=== PATIENT | female | born 1975 | race Caucasian/White ===

== ENCOUNTER → 2016-07-29 | Outpatient (CLI) | payer BC ==
[~2016-07-29] MED LIST: ALBU0.63 AEROSOL; ALPR0.5T PO; CETI10CA19 PO; CHOL200047 PO; EPIN0.3P3; ESTR8.1S; FAMO1TAB17; FLUT1DIS ORAL INH; FLUT9.9S; KETO10DR13 BOTH EYES; METF500T4 PO; SALINE FLUSH 10ml SYRINGE ONE; SINCALIDE 5 MCG/VIAL IJ ONE; SODIUM CHLORIDE (Bacteriostatic) 30ml VIAL ONE; TOPI100T9 PO; TRAM50TA53 PO
--- NOTE | 2016-07-29 07:56 | DI ---
Indication: ITS.REASON: R10.11 RUQ PAIN PROCEDURE: US GALLBLADDER: Encounter: Initial Comparison: None Technique: Grayscale and color Doppler sonographic imaging of the right upper quadrant of the abdomen was performed. Findings: Hepatic parenchyma is homogeneous without evidence for focal mass. The gallbladder appears sonographically normal. There is no wall thickening, pericholecystic fluid, or cholelithiasis. Sonographic Bhakta's sign was reportedly positive. Both the intra and extrahepatic biliary system are of normal caliber with the common duct measuring 3 mm in dimension. Pancreas is not well seen due to shadowing bowel gas. The right kidney is present without collecting system dilatation. The right kidney measures 9.1 cm in length. Impression: Isolated positive sonographic Bhakta's sign is indeterminate. There is no cholelithiasis or other sonographic findings to suggest acute cholecystitis. Nuclear medicine hepatobiliary scan may be helpful for further evaluation. .
--- NOTE | 2016-07-29 17:01 | DI ---
Indication: ITS.REASON: R10.11 RUQ PAIN nausea and vomiting, worse after eating PROCEDURE: NM HEPATOBIL/EF: Encounter: Initial Comparison: Gallbladder ultrasound from today Technique: 6.4 mCi of Tc-99m mebrofenin was injected intravenously. At approximately 61 minutes following this administration, 1.5 mcg of Kinevac was administered intravenously. Anterior planar images were obtained and a time/activity curve was calculated. FINDINGS: Radiotracer uptake is seen homogenously within the liver. There is normal clearance of radiotracer from the blood pool. The common bile duct is visualized at approximately 9 minutes. The gallbladder is visualized by 10 minutes, and radiotracer is excreted into the small bowel. There is no evidence of radiotracer outside the biliary or gastrointestinal tract. The gallbladder ejection fraction is normal at 54%. IMPRESSION: 1. Gallbladder visualization excluding acute cholecystitis. 2. Normal gallbladder ejection fraction of 54%, excluding biliary dyskinesia. .
== END ==
LOC: IMA 06:29
DX: R10.11 Right upper quadrant pain (principal); R11.2 Nausea with vomiting, unspecified

== ENCOUNTER → 2016-07-30 | Outpatient (CLI) | payer BC ==
[~2016-07-30] MED LIST changes: +IOHEXOL 300 MG/ML 75ml INJECTION ONE; +NORMAL SALINE 100 ML ONE; -SINCALIDE 5 MCG/VIAL IJ ONE; -SODIUM CHLORIDE (Bacteriostatic) 30ml VIAL ONE
[2016-07-30 12:28] LABS: BASOPHILS % (AUTO) 0.4 % (0-2); EOSINOPHILS # (AUTO) 0.1 T/MM3 (0-0.5); EOSINOPHILS % (AUTO) 1.7 % (0-4); HCT - HEMATOCRIT 47.4 % (36-46); LYMPHOCYTES # (AUTO) 1.6 T/MM3 (1-4.8); LYMPHOCYTES % (AUTO) 30.3 % (23-45); MEAN CORPUSCULAR HGB 30.4 UUG (26-34); MEAN CORPUSCULAR HGB CONC(MCHC 33.8 GM/DL (31-37); MEAN CORPUSCULAR VOLUME 89.9 UM3 (80-100); MEAN PLATELET VOLUME 9.9 UM3 (9.4-12.4); MONOCYTES # (AUTO) 0.4 T/MM3 (0-0.8); MONOCYTES % (AUTO) 7.5 % (0-9.0); NEUTROPHILS #(AUTO)-ABSOLUTE 3.1 T/MM3 (1.8-7.7); NEUTROPHILS % (AUTO) 60.1 % (33-66); RED BLOOD COUNT 5.27 M/MM3 (4.00-5.20); WBC - WHITE BLOOD COUNT 5.2 T/MM3 (4.5-11.0)
[2016-07-30 12:40] LABS: ALBUMIN 4.4 G/DL (3.5-5.0); ALBUMIN/GLOBULIN RATIO 1.3 RATIO (1.1-2.2); ALKALINE PHOSPHATASE 73 U/L (38-126); ALT (SGPT) 52 U/L (9-52); ANION GAP 16 MEQ/L (5-15); AST (SGOT) 33 U/L (14-36); BUN/CREATININE RATIO 10 RATIO (6-26); CALCIUM 9.3 MG/DL (8.4-10.2); CHLORIDE 105 MEQ/L (98-107); CO2 - CARBON DIOXIDE 25 MEQ/L (22-30); CREATININE 1.4 MG/DL (0.7-1.2); GLOMERULAR FILTRATION RATE 42; GLUCOSE 116 MG/DL (65-110); LIPASE 142 U/L (23-300); POTASSIUM 3.7 MEQ/L (3.6-5); SODIUM 146 MEQ/L (134-144); TOTAL PROTEIN 7.9 G/DL (6.3-8.2)
[2016-07-30 13:10] LABS: THYROID STIM HORMONE-TSH 2.12 MIU/L (0.47-4.68)
--- NOTE | 2016-07-30 14:04 | DI ---
Indication: ITS.REASON: R10.9 RUQ ABD PAIN; R11.0 NAUSEA PROCEDURE: CT ABD/PELVIS W/CONTRAST ONLY: Encounter: Initial Comparison: CT abdomen and pelvis dated January 16, 2009 and gallbladder ultrasound from July 29, 2016 Technique: Axial CT images were performed through the abdomen and pelvis after the administration of intravenous contrast. Coronal and sagittal two-dimensional reformats. Automated Exposure Control and Iterative Reconstruction dose reducing techniques were utilized. Contrast: Omnipaque 300 74 mL Findings: The lung bases are clear. The liver is normal. The gallbladder, spleen, pancreas, adrenal glands and kidneys are normal. No abdominal or pelvic lymphadenopathy. The bladder is normal. Uterus and ovaries are surgically absent. No free fluid. No evidence of a bowel obstruction. The small and large bowel appear normal. Ventriculoperitoneal shunt catheter loops in the anterior abdomen. There is no fluid collection or inflammation seen along the course of this catheter. Two abandoned ventriculoperitoneal catheters are seen in the subcutaneous tissues of the right lower chest and abdomen. There is no inflammation or fluid along either of these catheters. There is no subcutaneous inflammation along the course of the functioning left-sided [employer] shunt catheter tubing. Bone windows are within normal limits. The appendix is not seen but there is no inflammation in its expected location. Impression: Normal exam. No acute disease process seen in the abdomen or pelvis. .
== END ==
LOC: IMA 11:47
PROVIDERS: ATTEND Nurse Practitioner
DX: R10.11 Right upper quadrant pain (principal); R11.0 Nausea
CPT/HCPCS: 36415; 80053; 82150; 83690; 84443; 85025

== ENCOUNTER 2016-08-06 08:37 | Day surgery (SDC) | payer BC ==
[~2016-08-06] VITALS: Ht 152.4 cm; Wt 77.9 kg
[~2016-08-06 08:37] MED LIST changes: -IOHEXOL 300 MG/ML 75ml INJECTION ONE; +LIDOCAINE 1% (10mg/ml) 5ml VIAL INJ ONE; +LR 1,000 ML IV SCH; -NORMAL SALINE 100 ML ONE; -SALINE FLUSH 10ml SYRINGE ONE
--- OUTSIDE RECORDS SUMMARY | 2016-08-06 08:42 | XMS REPORT ---
Author Author Alex Vick [facility] eClinicalWorks Address Unknown Phone Unavailable Care Team Providers Care Stippler Name Role Phone Alex Vick CP Unavailable Allergies, Adverse Reactions, Alerts Substance Reaction Event Type Latex Gloves rash Drug Allergy Tuberculin PPD hives Drug Allergy Rocephin nausea Drug Allergy Ketek diarrhea Drug Allergy Darvocet-N 100 nausea Drug Allergy Celebrex flushing Drug Allergy Cefaclor rash Drug Allergy Adhesive Tape rash Drug Allergy Nuts anaphylaxis Non Drug Allergy Steri-Strip rash Drug Allergy Surgical alicia rash Non Drug Allergy Relafen nausea Non Drug Allergy Problems Problem Type Condition Code Onset Dates Condition Status Assessment Vaginal itching L29.8 Active Assessment Nipple discharge N64.52 Active Problem Hormone replacement therapy (postmenopausal) Z79.890 Active Problem Atrophic vaginitis N95.2 Active Problem Other specified menopausal and perimenopausal disorders N95.8 Active Assessment Hormone replacement therapy (postmenopausal) Z79.890 Active Assessment Atrophic vaginitis N95.2 Active Assessment Encounter for gynecological examination with abnormal finding Z01.411 Active Assessment Other specified menopausal and perimenopausal disorders N95.8 Active Medications Medication Code System Code Instructions Start Date End Date Status Dosage ZyrTEC Itchy Eye [facility] [address]-20 0.025 % Ophthalmic Twice a day 1 drop into affected eye Ultram [facility] [address]-87 50 mg Orally TID 1 tablet Evamist [facility] [address]-08 1.53 MG/SPRAY Transdermal Once a day 2 sprays to the skin Vitamin B Complex [facility] [address] Orally Once a day 1 tablet Metformin HCl [facility] [address]-44 500 MG Orally Twice a day 1 tablet with meals Topamax [facility] [address]-33 100 MG Orally Twice a day 1 tablet Flonase [facility] [address]-32 50 MCG/ACT Nasally Once a day 1 spray in each nostril One Daily Womens [facility] [address] Orally Once a day 1 tablet Estradiol Vaginal NTE Cream-Cust Rx NDC 0 0.01% insert vaginally Once a night Feb 01, 2014 pea size amount Zoloft [facility] [address]-58 50 MG Orally Once a day 1 tablet Proventil HFA [facility] [address]-22 108 (90 Base) MCG/ACT Inhalation every 4 hrs 2 puffs as needed Zyrtec Allergy [facility] [address]-48 10 MG Orally Once a day 1 tablet Xanax [facility] [address]-34 0.5 MG Orally as needed 1/2-1 tablet as needed Vitamin D3 [facility] [address]-46 5000 UNIT Orally Once a day 1 capsule Procedures Procedure Coding System Code Date SMEAR, WET MOUNT, SALINE/INK CPT-4 68008 Feb 08, 2015 Preventive Care Est Pt. Age 18-39 CPT-4 29308 Feb 08, 2015 Vital Signs Date/Time: Feb 08, 2015 BMI 34.37 Index Weight 176 lbs Height 5 ft 0 in in Blood Pressure Diastolic 70 mm Hg Blood Pressure Systolic 110 mm Hg Results Name Result Date Reference Range Unit Abnormality Flag Wet Prep Summary Purpose eClinicalWorks Submission
[2016-08-06 09:18] VITALS: Ht 152.4 cm; Wt 77.9 kg
[2016-08-06 09:19] VITALS: BP 118/82; PULSE 77; RESP 14; TEMP 98.4; O2SAT 99
--- NOTE | 2016-08-06 10:40 | ANESPREOP ---
Anesthesia Record Date and Time DATE: 08/06/16 TIME: 10:38 Pre-Op Diagnosis ABD pain Proposed Surgical Procedure EGD NPO since: Midnight Allergies: Coded Allergies: Latex, Natural Rubber (Verified Allergy, Unknown, 08/06/16) acetaminophen (Verified Allergy, Unknown, 08/06/16) cefaclor (Verified Allergy, Unknown, 08/06/16) ceftriaxone (Verified Allergy, Unknown, 08/06/16) celecoxib (Verified Allergy, Unknown, 08/06/16) feathers (Verified Allergy, Unknown, 08/06/16) nabumetone (Verified Allergy, Unknown, 08/06/16) propoxyphene (Verified Allergy, Unknown, 08/06/16) telithromycin (Verified Allergy, Unknown, 08/06/16) Uncoded Allergies: TAPE (Allergy, Unknown, 08/05/16) TB SERUM (Allergy, Unknown, 08/05/16) Ht/Wt/BMI Height: 5 ' 0.00 " Weight: 77.900 kg BMI: 33.5 kg/m2 Vital Signs Date Time Temp Pulse Resp B/P Pulse Ox O2 Delivery O2 Flow Rate FiO2 08/06/16 09:19 98.4 77 14 118/82 99 Room Air Medications Inpatient Medications Current Medications Medications (Trade) Dose Ordered Sig/Tani Start Time Stop Time Status Last Admin Dose Admin Lactated Ringer's (Lactated Ringers) 1,000 ml @ 100 mls/hr Q10H 08/05/16 18:03 08/06/16 09:33 100 MLS/HR Albuterol Sulfate (Albuterol Sulfate) 0.63 Mg/3 Ml Vial.neb, 1 VIAL AEROSOL QID PRN for AIR HUNGER, (Reported) Last Taken: on 08/03/16 1400 Alprazolam (Xanax) 0.5 Mg Tablet, 0.5-1 TAB PO BID PRN for ANXIETY, (Reported) Last Taken: on 08/06/16 0530 Cetirizine HCl (Zyrtec) 10 Mg Capsule, 1 CAP PO HS, (Reported) Last Taken: on 08/06/16 0530 Cholecalciferol (Vitamin D3) (Vitamin D3) 2, 000 Unit Capsule, 1 CAP PO DAILY, (Reported) Last Taken: on 08/05/16 0900 Epinephrine (Epipen 2-Giles) 0.3 Mg/0.3 Ml Auto.injct, 0.3 ML for ALLERGIC REACTION, (Reported) Last Taken: on Unknown Date & Time Estradiol (Evamist) 8.1 Ml [place], 2 SPRAY BID, (Reported) Last Taken: on 08/06/16 0530 Famotidine/Ca Carb/Mag Hydrox (Pepcid Complete Tablet Chew) 1 Each Tab.chew, 1-2 TAB DAILY PRN for ACID REFLUX, (Reported) Last Taken: on Unknown Date & Time Fluticasone Propionate (Flonase Allergy Relief 50 mcg/actuation Nasal) 9.9 Ml [place].susp, 2 SPRAY DAILY, (Reported) Last Taken: on 08/06/16 0530 Fluticasone/Salmeterol (Advair 100-50 Diskus) 1 Disk W/Dev Inhaler, 1 PUFF ORAL INH RTBID, (Reported) Last Taken: on 08/06/16 0530 Ketotifen Fumarate (Allergy Eye Drops) 10 Ml Drops, 1 DROP BOTH EYES BID PRN for ALLERY SYMPTOMS, (Reported) Last Taken: on 07/30/16 0800 Metformin HCl (Metformin HCl) 500 Mg Tablet, 500 MG PO BIDWM, (Reported) Take one tablet, by mouth, 2 times a day with Meals. Last Taken: on Unknown Date & Time Topiramate (Topamax) 100 Mg Tablet, 100 MG PO BID, (Reported) Take 1 tablet, by mouth, 2 times a day. Last Taken: on 07/30/16 0800 Tramadol HCl (Ultram) 50 Mg Tablet, 25-50 MG PO TID PRN for PAIN, (Reported) Last Taken: on 08/05/161999 Currently on Beta Avelino: No Medical/Surgical History Anesthesia PMH: Reports: Anxiety, Asthma, Headaches, Obesity, Reflux, Denies: * Diabetes, *Dyspnea, Anesthesia Reactions, Blood Transfusion Reac, COPD, CVA/ Stroke/TIA, Cancer, Clotting Problems, Glaucoma, Malignant Hyperthermia, Pneumonia, Renal Disease, Seizures, Sleep Apnea, Thyroid Disease, Tuberculosis Smoking Status: Never smoker Has pt. smoked today?: No Use Chewing Tobacco?: No Second Hand Exposure: No Substance Use Type: does not use Alcohol Intake: none Past Surgical History Orthopedic Surgeries: No Abdominal Surgeries: Yes - exporatory laparoscopy 2008, lysis of adhesions 2008 , appy Genitourinary Surgeries: No Cardiac Surgeries: No Endocrine Surgeries: No Reproductive Surgeries: Yes - HYST 2010, moses breast reduction 1996 Neurological Surgeries: Yes - PV shunt revisions Ear Surgeries: No Nose Surgeries: No Throat Surgeries: No Other Surgeries: Yes - dermoid removal 1982, wisdom teeth 2001 Anesthesia Adverse Reactions: FOUND none Family Hx of Anesthesia Advers: none Pertinent Findings EKG Rhythm: Sinus Rhythm Physical Exam Respiratory: Lungs clear Cardiovascular: FOUND Regular rate, rhythm Airway Assessment Mallampati Score: II TMD: 3 Fingerbreadths Neck Extension: Good Overall Assessment: No Airway Concerns ASA: 3 Plan Anesthesia Plan: TIVA Discussion Discussed risks/options/alternatives of anesthesia and questions answered. Patient consents. Nursing pain assessment noted. Present: Family Member Attestation Statement Prior to the delivery of any anesthetic medication, I examined the patient, developed the plan, obtained the patient's consent and discussed the risk and benefits of the procedure with the patient/guardian. ROSANGELA ROCK DESIGN MAKER Aug 06, 2016 10:40
[2016-08-06] MEDS ORDERED: LIDOCAINE VISCOUS 2% Oral Soln 15ml UD ONE (11:39)
[2016-08-06 12:05] VITALS: BP 102/64; PULSE 66; RESP 20; TEMP 98.5; O2SAT 93
[2016-08-06 12:20] VITALS: BP 101/58; PULSE 67; RESP 19; O2SAT 98
[2016-08-06 12:35] VITALS: BP 108/57; PULSE 66; RESP 20; O2SAT 100
--- NOTE | 2016-08-06 12:43 | ANESPO ---
Post-Op Note Date 08/06/16 Time: 12:42 Status Pt Participated in Evaluation: Pt participated in person Vital Signs Date Time Temp Pulse Resp B/P Pulse Ox O2 Delivery O2 Flow Rate FiO2 08/06/16 12:20 67 19 101/58 98 Room Air 08/06/16 12:05 98.5 Respiratory Function: Airway patent, Regular respirations Cardiovascular Function: Regular pulse Mental Status: Alert/oriented Pain Level Intensity: 0 Hydration: Taking po fluids, IV infusing Complications during Recovery None apparent Post-Anesthesia Notes pt. ana. well Follow-Up Instructions Instructions Per Surgeon Additional Information none CARLOS RUDOLPH CRNA Aug 06, 2016 12:43
[2016-08-06 12:50] VITALS: BP 120/77; PULSE 62; RESP 18; O2SAT 100
--- NOTE | 2016-08-06 23:04 | OPNOTEF ---
DATE OF SERVICE 08/06/2016. SURGEON Duy Chaudhry MD PREOPERATIVE DIAGNOSIS Personal history for right upper quadrant abdominal pain, history for nausea and vomiting. POSTOPERATIVE DIAGNOSIS Mild antritis, irregularity of squamocolumnar junction. PROCEDURE Esophagogastroduodenoscopy with circumferential biopsies from distal esophagus via cold biopsy technique, biopsies from antrum for permanent pathology and KORTNEY assay via cold biopsy technique. ANESTHESIA TIVA BRIEF HISTORY/INDICATIONS Ms. Chambers is a 41-year-old female who recently presented to my office as a result of her history for ongoing right upper quadrant abdominal pain, nausea and vomiting of uncertain etiology. Patient has undergone a quite thorough evaluation including prior gallbladder ultrasound, hepatobiliary scan that did not reveal any evidence for underlying biliary etiology for her abdominal pain. To further evaluate the etiology for her abdominal pain it was recommended that she undergo upper endoscopy/esophagogastroduodenoscopy. For completeness please refer to notes included in the patient's chart. FINDINGS Upon upper endoscopy no marked abnormalities were noted to explain her right upper quadrant abdominal pain, nausea, vomiting. There was no evidence for davide ulcerations or marked gastritis. The mucosa within the antral portion was mildly to moderately erythematous, however. Therefore, a few biopsies were obtained from the antrum for permanent pathology as well as for KORTNEY assay. Endoscopically, there was no evidence for hiatal hernia. She was found to have some slight irregularity of the squamocolumnar junction. Endoscopically, however, there was no evidence for marked distal esophagitis. NARRATIVE OF PROCEDURE After informed consent was obtained the patient was brought to the endoscopy suite and placed upon the table in left lateral decubitus position. The patient subsequently underwent total intravenous anesthesia by the nurse overedge sewer at my request. Formal time-out was then completed. Next, an Olympus gastroscope was inserted into the oral hypopharynx and subsequently into the esophagus under direct visualization. Gastroscope was advanced through the esophagus, stomach, pylorus, duodenal bulb, second portion of the duodenum. Scope was then slowly withdrawn. First and second portions of the duodenum were within normal limits. No evidence of duodenitis or ulcerations was noted. Scope was drawn back to the prepyloric region and antrum. As stated above, there was no evidence for davide ulcerations. However, the mucosa was mildly to moderately erythematous in nature. Given her symptomatology I elected to go ahead and proceed with a few biopsies to rule in or rule out the presence of H. pylori. Biopsies were obtained from the antrum for permanent pathology as well as for KORTNEY assay via cold biopsy technique. J-maneuver was then performed. Cardia and fundus were within normal limits. Endoscopically there was no evidence for hiatal hernia. Scope was allowed to straighten and was slowly withdrawn and the remaining corpus of the stomach was well visualized and again without noted abnormalities. Scope was drawn back to the level of the diaphragm. Squamocolumnar junction was located at the level of the diaphragm and was irregular in nature. There was some progression of the columnar mucosa upon the squamous epithelium to a length of about 5-8 mm at various locations. The distal esophageal mucosa, however, was not found to be significantly edematous or erythematous in nature to suggest distal esophagitis. Nonetheless, give the irregularity of the squamocolumnar junction, circumferential biopsies were obtained from the distal esophagus via cold biopsy technique at various lengths. The scope was slowly withdrawn and the remaining esophageal mucosa was found to be within normal limits. The patient tolerated the procedure without difficulty and was sent back to the preop area in stable condition. Will await biopsy results from today's EGD and proceed accordingly with further recommendations thereafter. [facility]
== END 2016-08-06 13:01 | disposition home or self-care (01) ==
LOC: SCU 08:37
PROVIDERS: ATTEND Surgery
DX: K29.60 Other gastritis without bleeding (principal); K21.0 Gastro-esophageal reflux disease with esophagitis; F41.9 Anxiety disorder, unspecified; F32.9 Major depressive disorder, single episode, unspecified; K58.9 Irritable bowel syndrome, unspecified; Z79.899 Other long term (current) drug therapy; Z79.890 Hormone replacement therapy
CPT/HCPCS: 87081